=== PATIENT | male | born 1995 | race Hispanic/Latino ===

== ENCOUNTER 2018-03-25 02:46 | Emergency (ER) | payer BC ==
[2018-03-25 02:52] VITALS: BMI 47.4
[2018-03-25] MEDS ORDERED: Sodium Chloride 0.9% 1,000 ML IV STA (04:17)
--- NOTE | 2018-03-25 04:22 | ED PDOC ---
HPI: Psych/Substance Abuse Time Seen by Provider: 03/25/18 02:51 Chief Complaint (Nursing): Substance Abuse Chief Complaint (Provider): Substance Abuse ED Caveat: Intoxicated, Uncooperative History Per: Patient Current Symptoms Are (Timing): Still Present Suicide/Self Injury Attempted (Context): None Associated Symptoms: Agitation Additional Complaint(s): 22 year old male presents to the ED via EMS for substance abuse, possibly PCP. Patient offers a limited history due to agitation. EMS found him on the streets , agitated. Offers no complaints. PMD none provided Past Medical History Reviewed: Historical Data, Nursing Documentation, Vital Signs - Medical History PMH: No Chronic Diseases - Surgical History Surgical History: No Surg Hx - Family History Family History: States: Unknown Family Hx - Allergies Allergies/Adverse Reactions: Allergies Allergy/AdvReac Type Severity Reaction Status Date / Time No Known Allergies Allergy Verified 03/25/18 02:52 Review of Systems Review Of Systems: ROS cannot be obtained secondary to pt's inabilty to answer questions. Physical Exam - Reviewed Nursing Documentation Reviewed: Yes Vital Signs Reviewed: Yes - Physical Exam Appears: Positive for: Non-toxic, No Acute Distress Head Exam: Positive for: ATRAUMATIC, NORMAL INSPECTION, NORMOCEPHALIC Skin: Positive for: Normal Color, Warm, Dry Eye Exam: Positive for: EOMI, Normal appearance, PERRL Neck: Positive for: Normal, Painless ROM, Supple Cardiovascular/Chest: Positive for: Regular Rate, Rhythm Respiratory: Positive for: CNT, Normal Breath Sounds Extremity: Positive for: Normal ROM. Negative for: Deformity - Laboratory Results Result Diagrams: 03/25/18 07:00 03/25/18 07:00 - ECG Pulse Ox Interpretation: Normal Medical Decision Making Medical Decision Makin Impression: substance abuse and substance abuse psychosis Initial Plan: --Etoh serum --BMP --UDS --CBC --Ativan 2 mg IM --Haldol 5 mg IM --NS IV --1:1 observation Patient was restrained as a safety precaution.He was administered Haldol and Ativan for substance abuse psychosis. 04:12 Patient is comfortably sleeping, agitation resolved restraints removed Scribe Attestation: Documented by Allie Stiles, acting as a scribe for Vitaly Chow MD Provider Scribe Attestation: All medical record entries made by the Scribe were at my direction and personally dictated by me. I have reviewed the chart and agree that the record accurately reflects my personal performance of the history, physical exam, medical decision making, and the department course for this patient. I have also personally directed, reviewed, and agree with the discharge instructions and disposition. Disposition - Clinical Impression Clinical Impression: Alcohol abuse - Patient ED Disposition Is Patient to be Admitted: Transfer of Care - Disposition Referrals: [facility] [place] [Outside] Disposition: Transfer of Care Disposition Time: 07:00 Condition: STABLE Instructions: Alcohol Abuse and Alcoholism (DC) Patient Signed Over To: Federico Cabrera Handoff Comments: pending clinical sobriety
[2018-03-25 07:12] LABS: HEMOGLOBIN 14.8 g/dL (12.0-18.0); MEAN CELL VOLUME 93.6 fl (80.0-94.0); MEAN CORPUSCULAR HEMOGLOBIN 31.4 pg (27.0-31.0); MEAN CORPUSCULAR HGB CONC 33.6 g/dL (33.0-37.0); RBC 4.69 Mil/uL (4.40-5.90); RED CELL DISTRIBUTION WIDTH 14.2 % (11.5-14.5); WHITE BLOOD COUNT 8.3 K/uL (4.8-10.8)
--- NOTE | 2018-03-25 07:23 | ED PDOC ---
- Laboratory Results Result Diagrams: 03/25/18 07:00 03/25/18 07:00 - ECG O2 Sat by Pulse Oximetry: 100 (RA) Pulse Ox Interpretation: Normal - Progress ED Course And Treament: 954: Stable. Dr. Johnson to take over care. FU on sobriety. Medical Decision Making Medical Decision Making: Time: 07 -- 22 y/o male brought to the ED by EMS for substance abuse, pending clinical sobriety. Scribe Attestation: Documented by Prashant Chatterjee acting as a scribe for Dr. Federico Cabrera MD. Provider Scribe Attestation: All medical record entries made by the Scribe were at my direction and personally dictated by me. I have reviewed the chart and agree that the record accurately reflects my personal performance of the history, physical exam, medical decision making, and the department course for this patient. I have also personally directed, reviewed, and agree with the discharge instructions and disposition. Disposition - Clinical Impression Clinical Impression: Alcohol abuse - POA Present On Arrival: None - Disposition Disposition: Transfer of Care Disposition Time: 09:55 Condition: FAIR Patient Signed Over To: Nasrin Johnson
[2018-03-25 07:25] LABS: BLOOD UREA NITROGEN 15 mg/dl (9-20); CALCIUM 10.4 mg/dL (8.4-10.2); GFR NON-AFRICAN AMERICAN > 60
--- NOTE | 2018-03-25 10:15 | ED PDOC ---
- Laboratory Results Result Diagrams: 03/25/18 07:00 03/25/18 07:00 - ECG O2 Sat by Pulse Oximetry: 100 (RA) Pulse Ox Interpretation: Normal Medical Decision Making Medical Decision Making: Time: 1000 -- Patient endorsed to Dr. Johnson by Dr. Cabrera, pending clinical sobriety 13:00 Pt AAOX3, steady gait. Scribe Attestation: Documented by Prashant Chatterjee acting as a scribe for Dr. Nasrin Johnson MD. Provider Scribe Attestation: All medical record entries made by the Scribe were at my direction and personally dictated by me. I have reviewed the chart and agree that the record accurately reflects my personal performance of the history, physical exam, medical decision making, and the department course for this patient. I have also personally directed, reviewed, and agree with the discharge instructions and disposition. Disposition - Clinical Impression Clinical Impression: Alcohol abuse - POA Present On Arrival: None - Disposition Referrals: [facility] [Outside] Disposition: Routine/Home Disposition Time: 13:07 Condition: STABLE Instructions: Alcohol Abuse and Alcoholism (DC) Forms: [facility] (Slovak)
[2018-03-25 13:02] VITALS: O2SAT 100
[2018-03-25 13:30] VITALS: BP 131/72; PULSE 71; RESP 17; TEMP 98
== END 2018-03-25 13:29 | disposition home or self-care (01) ==
LOC: H.ER 02:46
DX: F10.10 Alcohol abuse, uncomplicated (principal)
CPT/HCPCS: 80048; 85027; 96372; 99284; G0480; J1630; J2060